=== PATIENT | female | born 1990 | race Two or more races ===

== ENCOUNTER → 2021-10-27 | Outpatient (CLI) | payer OTHER ==
--- NOTE | 2021-10-27 17:27 | RAD ---
US PELVIS W/TV History: Reason: IRREGULAR MENSES / Spl. Instructions: / History: Comparison: None Technique: Grayscale and color Doppler imaging of the pelvis was performed using transabdominal and t ransvaginal technique. Findings: The uterus measures 7.8 x 4.6 x 4.3 cm. Retroverted. Minimal fluid within the cervical canal. The en dometrial stripe measures 10 mm. Right ovary measures 3.8 x 2.9 x 3.5 cm. Septated right ovarian cyst measures 3.0 x 2.3 x 1.7 cm. Left ovary measures 4.2 x 1.6 x 2.0 cm. Normal Doppler flow to the ovaries. No adnexal masses are seen. Small pelvic free fluid. IMPRESSION: 1. Minimal fluid within the cervical canal. 2. Small septated right ovarian cyst. 3. Small pelvic free fluid. Electronically signed by: Dane Campbell DO (10/27/2021 5:24 PM) [id number]
== END ==
LOC: US 14:57
PROVIDERS: ATTEND Physician Assistant
DX: N83.291 Other ovarian cyst, right side (principal); N92.5 Other specified irregular menstruation
CPT/HCPCS: 76830; 76856